=== PATIENT | male | born 1955 | race Caucasian/White ===

== ENCOUNTER 2016-12-07 16:54 | Inpatient (IN) | payer BC ==
[~2016-12-07] VITALS: Ht 188 cm; Wt 156.9 kg
[2016-12-07] MEDS ORDERED: ASPIRIN 325 MG TABLET PO ONE (17:15)
[2016-12-07] MEDS ORDERED: fentaNYL PF VIAL 100 MCG/2 ML VIAL IV PRN ×2 (17:15→18:45)
[2016-12-07 17:28] LABS: BASO % 1 % (0-3); EOS % 1 % (0-3); HEMATOCRIT 42.1 % (39.0-53.0); HEMOGLOBIN 14.3 g/dL (13.0-17.5); LYMPH % 23 % (24-48); MEAN CORPUSCULAR HEMOGLOBIN 29 pg (25-35); MEAN CORPUSCULAR HGB CONC 34 g/dL (31-37); MEAN CORPUSCULAR VOLUME 85 fL (79-100); MONO % 12 % (0-9); NEUT % 64 % (31-73); PLATELET COUNT 173 x10^3/uL (140-400); RED BLOOD COUNT 4.94 x10^6/uL (4.30-5.70); RED CELL DISTRIBUTION WIDTH 14.6 % (11.5-14.5); WHITE BLOOD COUNT 8.6 x10^3/uL (4.0-11.0)
[2016-12-07 17:46] LABS: CALCIUM 9.6 mg/dL (8.5-10.1); CREATININE 0.8 mg/dL (0.7-1.3); MAGNESIUM 2.1 mg/dL (1.8-2.4); POTASSIUM 3.9 mmol/L (3.5-5.1)
--- NOTE | 2016-12-07 18:36 | PHYS DOC ---
Past Medical History Past Medical History: Hypertension Past Surgical History: Appendectomy Additional Past Surgical Histo: VEIN SURGERY ON LEGS Alcohol Use: None Drug Use: None Adult General Chief Complaint Chief Complaint: CHEST PAIN HPI HPI Patient is a 61 year old male who presents with with left upper achy/stabbing chest pain that started approximately 1 hour prior to arrival, constant, nonradiating, associated with right hand tingling. Started shortly after a large family argument about the care of his mother with Alzheimer's. He now has minimal symptoms and is feeling mostly better. He denies cough, dyspnea, palpitations, lightheadedness, diaphoresis, orthopnea, leg pain or swelling, hemoptysis, nausea or vomiting, fever or chills, exertional symptoms. 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 Review of Systems Review of Systems Constitutional: Denies fever or chills [] Eyes: Denies change in visual acuity, redness, or eye pain [] HENT: Denies nasal congestion or sore throat [] Respiratory: Denies cough or shortness of breath [] Cardiovascular: No additional information not addressed in HPI [] GI: Denies abdominal pain, nausea, vomiting, bloody stools or diarrhea [] : Denies dysuria or hematuria [] Musculoskeletal: Denies back pain or joint pain [] Integument: Denies rash or skin lesions [] Neurologic: Denies headache, focal weakness or sensory changes [] Endocrine: Denies polyuria or polydipsia [] Current Medications Current Medications Current Medications Medications (Trade) Dose Ordered Sig/[facility] Start Time Stop Time Status Last Admin Dose Admin Aspirin (Alec Aspirin) 325 mg 1X ONCE 12/07/16 17:15 12/07/16 17:24 DC 12/07/16 17:37 325 MG Fentanyl Citrate (Fentanyl 2ml Vial) 50 mcg PRN Q15MIN PRN 12/07/16 17:15 12/08/16 17:14 Allergies Allergies Allergies Coded Allergies Type Severity Reaction Last Updated Verified No Known Drug Allergies 12/07/16 No Physical Exam Physical Exam Constitutional: Well developed, well nourished, no acute distress, non-toxic appearance. [] HENT: Normocephalic, atraumatic, bilateral external ears normal, oropharynx moist, nose normal. [] Eyes: PERRLA, EOMI. [] Neck: Normal range of motion, supple. [] Cardiovascular:Heart rate regular rhythm [] Lungs & Thorax: Bilateral breath sounds clear to auscultation. No chest wall tenderness [] Abdomen: Bowel sounds normal, soft, no tenderness. [] Skin: Warm, dry, no erythema, no rash. [] Back: Normal range of motion. [] Extremities: No tenderness, ROM intact, no edema. [] Neurologic: Alert and oriented X 3, normal motor function, normal sensory function, no focal deficits noted. [] Psychologic: Affect normal, judgement normal, mood normal. [] Current Patient Data Vital Signs Vital Signs Date Time Temp Pulse Resp B/P (MAP) Pulse Ox O2 Delivery O2 Flow Rate FiO2 12/07/16 17:06 98.7 109 20 194/91 (125) 98 Room Air 98.7 Lab Values Laboratory Tests Test 12/07/16 17:17 White Blood Count 8.6 x10^3/uL (4.0-11.0) Red Blood Count 4.94 x10^6/uL (4.30-5.70) Hemoglobin 14.3 g/dL (13.0-17.5) Hematocrit 42.1 % (39.0-53.0) Mean Corpuscular Volume 85 fL (79-100) Mean Corpuscular Hemoglobin 29 pg (25-35) Mean Corpuscular Hemoglobin Concent 34 g/dL (31-37) Red Cell Distribution Width 14.6 % (11.5-14.5) H Platelet Count 173 x10^3/uL (140-400) Neutrophils (%) (Auto) 64 % (31-73) Lymphocytes (%) (Auto) 23 % (24-48) L Monocytes (%) (Auto) 12 % (0-9) H Eosinophils (%) (Auto) 1 % (0-3) Basophils (%) (Auto) 1 % (0-3) Neutrophils # (Auto) 5.5 x10^3uL (1.8-7.7) Lymphocytes # (Auto) 2.0 x10^3/uL (1.0-4.8) Monocytes # (Auto) 1.0 x10^3/uL (0.0-1.1) Eosinophils # (Auto) 0.1 x10^3/uL (0.0-0.7) Basophils # (Auto) 0.0 x10^3/uL (0.0-0.2) Sodium Level 140 mmol/L (136-145) Potassium Level 3.9 mmol/L (3.5-5.1) Chloride Level 102 mmol/L (98-107) Carbon Dioxide Level 26 mmol/L (21-32) Anion Gap 12 (6-14) Blood Urea Nitrogen 18 mg/dL (8-26) Creatinine 0.8 mg/dL (0.7-1.3) Estimated GFR (Cockcroft-Gault) 98.0 Glucose Level 129 mg/dL (70-99) H Calcium Level 9.6 mg/dL (8.5-10.1) Magnesium Level 2.1 mg/dL (1.8-2.4) Troponin I Quantitative < 0.017 ng/mL (0.000-0.055) RY-Scz-F-Type Natriuretic Peptide 80 pg/mL (0-124) Laboratory Tests 12/07/16 17:17 Laboratory Tests 12/07/16 17:17 EKG EKG EKG as interpreted by me as sinus tachycardia, rate 1:15, no ST-T changes, normal intervals, no ectopy Radiology/Procedures Radiology/Procedures Chest xray as interpreted by me with no acute cardiopulmonary disease process Course & Med Decision Making Course & Med Decision Making Pertinent Labs and Imaging studies reviewed. (See chart for details) HEART score 4. Initial workup unremarkable. Will admit for ACS rule out. Discussed case with Dr. Domingo, who will admit. Cardiology consult placed. Tye Disclaimer Dragon Disclaimer This electronic medical record was generated, in whole or in part, using a voice recognition dictation system. Departure Departure Impression: Primary Impression: Chest pain Disposition: ADMITTED INPATIENT Condition: STABLE Referrals: LANDON DOMINGO MD (PCP) Problem Qualifiers Primary Impression: Chest pain Chest pain type: unspecified Qualified Codes: R07.9 - Chest pain, unspecified Andrey TORRE MD December 07, 2016 18:36
[2016-12-07] MEDS ORDERED: NITROGLYCERIN SUBLINGUAL 0.4 MG BOTTLE OF 25. SL PRN (18:45)
[2016-12-07] MEDS ORDERED: ONDANSETRON PF 4 MG/2 ML VIAL. IV PRN (18:45)
[2016-12-07] MEDS ORDERED: ACETAMINOPHEN 325 MG TABLET. PO PRN (18:45)
[2016-12-07 19:41] VITALS: BP 192/101
[2016-12-07] MEDS: cloNIDine HCL 0.1 MG TABLET PO PRN (21:39)
[2016-12-07] MEDS ORDERED: AMLO1TAB95 PO (22:44)
[2016-12-07 22:53] VITALS: BP 148/85
--- NOTE | 2016-12-08 01:47 | ACF ---
Admit Criteria Forms Admit Criteria Forms Admit Criteria Forms CHEST PAIN Clinical Indications for Admission to Inpatient Care (Place 'X' for any and all applicable criteria): Admission is indicated for chest pain and ANY ONE of the following(1)(2)(3)(4)(5 ): [X]I. Angina with acute coronary syndrome (Also use Myocardial Infarction or Angina guideline) [ ]II. Hemodynamic instability [ ]III. Angina needing acute intervention as indicated by ALL of the following( 11)(12): [ ]a) Unstable angina is present as indicated by angina that is ANY ONE of the following: [ ]i) New onset [ ]ii) Nocturnal [ ]iii) Prolonged at rest [ ]iv) Progressive [ ]b) Angina warrants acute intervention as indicated by ANY ONE of the following: [ ]i) Recurrent angina (e.g, not responding as previously to treatment) [ ]ii) Angina at rest or with low-level activities despite initial medical therapy [ ]iii) New or presumably new ST-segment depression on ECG [ ]iv) Signs or symptoms of heart failure (eg, dyspnea, pulmonary edema) [ ]v) New or worsening mitral regurgitation [ ]vi) Hemodynamic instability [ ]vii) Dangerous arrhythmia (eg, sustained ventricular tachycardia) [ ]viii) History of percutaneous coronary intervention within 6 months [ ]ix) History of coronary artery bypass graft surgery [ ]x) CELINE risk score of 2 or greater[A] [ ]xi) History of Diabetes(14) [ ]xii) High-risk cardiac ischemia findings on noninvasive testing (e.g, echocardiogram, treadmill testing, nuclear scan) [ ]xiii) Chronic renal insufficiency (ie, estimated GFR less than 60 mL/min/1.732m) [ ]xiv) Left ventricular ejection fraction less than 40% [ ]IV. Evidence of OK (eg, cardiac biomarkers positive, ST-segment elevation on ECG) also use Myocardial Infarction Criteria Form. [ ]V. Pulmonary edema [ ]. Respiratory distress [ ]VII. Chest pain indicative of serious diagnosis other than coronary artery disease (eg, aortic dissection) [ ]VIII. Contraindications and/or Inappropriate clinical situations for Observational Care in patients with Chest Pain, when ANY ONE of the following is required: [ ]a) Patient with risk factor for pulmonary embolism, acute coronary syndrome and myocardial infarction (18) [ ]b) Patient with Pulmonary embolism require an average LOS of 4.3 days, therefore emergency department observation management is inappropriate 18,23 [ ]c) Painful condition/s in the elderly, have the highest rate of recidivism after emergency department observation management (10.8%) 20,21,22 [ ]d) Elevated cardiac biomarker requires intensive and exhaustive care (19) [ ]IX. General contraindications and/or Inappropriate clinical situations for Observational Care in patients with Chest Pain, when ANY ONE of the following is required: [ ]a) Prediction of prolongation of LOS based on ANY ONE of the following may be considered as a contraindication for observational care 2, 3, 4, 5, 6, 7, 8, 9, 10, 11 [ ]i) Age > 65 yrs. [ ]ii) Patient arriving by ambulance [ ]iii) Patient with high acuity [ ]iv) Patient requiring vital sign monitoring [ ]v) Patient on IV medication [ ]b) Systolic blood pressures 180mmHg 3,12 [ ]c) Patient with altered mental status including delirium and other alteration of consciousness, (3) [ ]d) Patient whose discharge disposition will be to a fdc home or rehabilitation home should not be managed in Emergency Department Observation Unit. CMS rule requires 3 days hospital stay before such placement. 3,13 [ ]e) Patient with failure to thrive due to broad array of etiologies 3,16,17 [ ]f) Inability to ambulate 3,14 Extended stay beyond goal length of stay may be needed for (1)(28): [ ]a) Specific condition diagnosed after evaluation (eg, pulmonary embolism, aortic dissection) [ ]b) Unstable angina [ ]c) Continued suspicion of acute coronary syndrome with inability to complete needed cardiac evaluation (eg, patient clinically unable to undergo stress testing) [ ]d) Myocardial infarction (Contents from ANGINA and CHEST PAIN clinical indications for admission to inpatient care have been integrated in this form) The original [employer] content created by [employer] has been revised. The portions of the content which have been revised are identified through the use of italic text or in bold, and [facility] has neither reviewed nor approved the modified material. All other unmodified content is copyright [employer]. Please see references footnoted in the original [facility] edition 2016 CAIN MAYA December 08, 2016 01:47
[2016-12-08 03:53] VITALS: BP 124/80
--- NOTE | 2016-12-08 06:28 | EKG ---
[facility] [address] [place] [address] Test Date: 2016-12-07 Test Time: 17:02:27 Pat Name: SHANTANU ABEBE Department: Room: 200 1 Gender: M Dispatch Clerk: : [id number] Requested By: Andrey TORRE Order Number: [id number] Reading MD: Robe Tello Measurements Intervals [place] Rate: 115 P: 38 TX: 136 QRS: -21 QRSD: 114 T: 24 QT: 340 QTc: 472 Interpretive Statements SINUS TACHYCARDIA RBBB Electronically Signed On 12-09-2016 9:20:54 CDT by Robe Tello
[2016-12-08 07:00] VITALS: BP 145/77
--- NOTE | 2016-12-08 09:05 | PDOC2 ---
CARDIAC CONSULT DATE OF CONSULT Date of Consult DATE: 12/08/16 TIME: 08:57 REASON FOR CONSULT Reason for Consult: Chest pain REFERRING PHYSICIAN Referring Physician: White SOURCE Source: Chart review, Patient HISTORY OF PRESENT ILLNESS HISTORY OF PRESENT ILLNESS This is a pleasant 61 yo male admitted for complains of chest pain. Reports that he was having family dynamics issue in regards to care for his mother who likely has advanced Alzheimers. This lasted for a while with mother calling the police. He made the report with the police. He head to the car afterwards then he started feeling significant left sharp pain and felt that this was anxiety related which he was. Upon driving this continued on and started having right hand numbness and tingling. Denies any diaphoresis, palpitations, nausea or SOA. This discomfort lasted about 40 minutes before getting better. He does not take any ASA. However, he takes BP meds and when he got to ED his BP remained elevated despite taking his medications. He also has preDM. Denies any recent falls, or injury, neck problems. Last stress test was >10 yrs ago. Denies any CAD, VTE. No chronic NSAIDs and no history of anxiety or depression. PAST MEDICAL HISTORY Cardiovascular: Other (varicose veins) Pulmonary: No pertinent hx CENTRAL NERVOUS SYSTEM: Other (No pertinent history) GI: No pertinent hx Heme/Onc: No pertinent hx Hepatobiliary: No pertinent hx Psych: No pertinent hx Musculoskeletal: Osteoarthritis Rheumatologic: No pertinent hx Infectious disease: No pertinent hx ENT: No pertinent hx Renal/: No pertinent hx Endocrine: No pertinent hx PAST SURGICAL HISTORY Past Surgical History: Appendectomy, Other (leg vein stripping) SOCIAL HISTORY Smoke: No ALCOHOL: none Drugs: None Lives: with Family CURRENT MEDICATIONS CURRENT MEDICATIONS Current Medications Medications (Trade) Dose Ordered Sig/Lucio Route PRN Reason Start Time Stop Time Status Last Admin Dose Admin Aspirin (Alec Aspirin) 325 mg 1X ONCE PO 12/07/16 17:15 12/07/16 17:24 DC 12/07/16 17:37 Clonidine HCl (Catapres) 0.1 mg PRN Q6HRS PRN PO HYPERTENSION for Systolic >160 12/07/16 21:30 12/07/16 21:39 ALLERGIES ALLERGIES: Coded Allergies: No Known Drug Allergies (Unverified , 12/07/16) ROS Review of System 14 point ROS evaluated with pertinent positives noted per HPI PHYSICAL EXAM General: Alert, Oriented X3, Cooperative, No acute distress HEENT: Atraumatic, Mucous membr. moist/pink Heart: Regular rate (SR), Normal S1, Normal S2, Other (2/6 systolic murmur to LLS border) Abdomen: Soft, Other (truncal obese) Extremities: No cyanosis, No edema Skin: No significant lesion Neuro: Normal speech, Sensation intact Psych/Mental Status: Mental status NL, Mood NL MUSCULOSKELETAL: Osteoarthritic changes both hands VITALS VITALS Vital Signs Date Time Temp Pulse Resp B/P (MAP) Pulse Ox O2 Delivery O2 Flow Rate FiO2 12/08/16 08:00 Room Air 12/08/16 07:00 97.7 68 20 145/77 (99) 95 97.7 LABS Lab: Laboratory Tests Test 12/07/16 17:17 12/08/16 00:15 12/08/16 05:45 White Blood Count 8.6 x10^3/uL (4.0-11.0) Red Blood Count 4.94 x10^6/uL (4.30-5.70) Hemoglobin 14.3 g/dL (13.0-17.5) Hematocrit 42.1 % (39.0-53.0) Mean Corpuscular Volume 85 fL (79-100) Mean Corpuscular Hemoglobin 29 pg (25-35) Mean Corpuscular Hemoglobin Concent 34 g/dL (31-37) Red Cell Distribution Width 14.6 % (11.5-14.5) Platelet Count 173 x10^3/uL (140-400) Neutrophils (%) (Auto) 64 % (31-73) Lymphocytes (%) (Auto) 23 % (24-48) Monocytes (%) (Auto) 12 % (0-9) Eosinophils (%) (Auto) 1 % (0-3) Basophils (%) (Auto) 1 % (0-3) Neutrophils # (Auto) 5.5 x10^3uL (1.8-7.7) Lymphocytes # (Auto) 2.0 x10^3/uL (1.0-4.8) Monocytes # (Auto) 1.0 x10^3/uL (0.0-1.1) Eosinophils # (Auto) 0.1 x10^3/uL (0.0-0.7) Basophils # (Auto) 0.0 x10^3/uL (0.0-0.2) Sodium Level 140 mmol/L (136-145) Potassium Level 3.9 mmol/L (3.5-5.1) Chloride Level 102 mmol/L (98-107) Carbon Dioxide Level 26 mmol/L (21-32) Anion Gap 12 (6-14) Blood Urea Nitrogen 18 mg/dL (8-26) Creatinine 0.8 mg/dL (0.7-1.3) Estimated GFR (Cockcroft-Gault) 98.0 Glucose Level 129 mg/dL (70-99) Calcium Level 9.6 mg/dL (8.5-10.1) Magnesium Level 2.1 mg/dL (1.8-2.4) Troponin I Quantitative < 0.017 ng/mL (0.000-0.055) < 0.017 ng/mL (0.000-0.055) < 0.017 ng/mL (0.000-0.055) TB-Avu-K-Type Natriuretic Peptide 80 pg/mL (0-124) ASSESSMENT/PLAN ASSESSMENT/PLAN 1. Atypical chest pain: Likely anxiety induced. troponin series normal, EKG SR with LAFB/IVCD. Noted cardiac risk factors. 2. Accelerated HTN: improved 3. Morbid obesity: BMI 45 4. Dysmetabolic X syndrome Recommendations 1. Would like to go ahead an proceed with MPI and will completely rule out ischemia 2. TTE, CMP, TSH, lipids 3. Lifestyle modifications 4. Resume home amlodipine/benicar Problems: ALEXANDRO ANN APRN December 08, 2016 09:05
--- NOTE | 2016-12-08 09:19 | RAD ---
Indication hypertension. Chest pain. PA and lateral views of the chest were obtained. No prior imaging of the chest is available. The heart and pulmonary vessels appear normal. The lungs are clear. There is no pleural fluid or pneumothorax. The bony structures appear grossly intact. IMPRESSION: No acute or focal process is seen in the chest
[2016-12-08 09:50] LABS: ALBUMIN 3.6 g/dL (3.4-5.0); ALBUMIN/GLOBULIN RATIO 1.1 (1.0-1.7); CALCIUM 8.9 mg/dL (8.5-10.1); CREATININE 0.9 mg/dL (0.7-1.3); GFR 85.5; POTASSIUM 3.6 mmol/L (3.5-5.1); TOTAL BILIRUBIN 0.4 mg/dL (0.2-1.0)
[2016-12-08 09:51] LABS: CHOLESTEROL/HDL RATIO 3.2
[2016-12-08 11:06] VITALS: BP 193/98
[2016-12-08] MEDS: cloNIDine HCL 0.1 MG TABLET PO PRN (11:12)
[2016-12-08] MEDS ORDERED: LABETALOL 20 MG/4 ML DISP.SYRIN. IVP PRN (11:15)
[2016-12-08] MEDS ORDERED: LABETALOL 20 MG/4 ML DISP.SYRIN. IVP ONE (11:30)
[2016-12-08] MEDS: amLODIPine BESYLATE 5 MG TABLET PO SCH (12:09)
[2016-12-08] MEDS: LOSARTAN POTASSIUM 50 MG TABLET. PO SCH (12:10)
--- NOTE | 2016-12-08 16:16 | CARD ---
APPROVED REPORT EXAM: Two-dimensional and M-mode echocardiogram with Doppler and color Doppler. Other Information Quality : GoodHR: 88bpm Rhythm : NSR INDICATION Chest pain RISK FACTORS Obesity 2D DIMENSIONS RVDd3.1 (2.9-3.5cm)Left Atrium(2D)3.8 (1.6-4.0cm) IVSd1.3 (0.7-1.1cm)Aortic Root(2D)3.4 (2.0-3.7cm) LVDd5.0 (3.9-5.9cm)LVOT Diameter2.3 (1.8-2.4cm) PWd1.3 (0.7-1.1cm)LVDs3.5 (2.5-4.0cm) FS (%) 30.4 %SV69.6 ml LVEF(%)57.5 (>50%) Aortic Valve AoV Peak Sree.166.4cm/sAoV VTI30.1cm AO Peak GR.11.1mmHgLVOT Peak Sree.123.1cm/s AO Mean GR.6mmHgAVA (VMAX)3.04cm2 Mitral Valve MV E Fjhtkcxd91.8cm/sMV E Peak Gr.5mmHg MV DECEL [id number] A Lhghgdub298.7cm/s MV E Mean Gr.2mmHgE/A Ratio0.7 MV A [id number] Pulmonary Valve PV Peak Nognuvnb269.2cm/s Pulmonary Vein S1 Zjyiblpj37.7cm/sD2 Nrxtptmk64.3cm/s PVa [id number] LEFT VENTRICLE The left ventricle is normal size. There is mild concentric left ventricular hypertrophy. The left ve ntricular systolic function is normal and the ejection fraction is within normal range. The Ejection Fraction is 55-60%. There is normal LV segmental wall motion. Transmitral Doppler flow pattern is Gra de I-abnormal relaxation pattern. RIGHT VENTRICLE The right ventricle is normal size. There is normal right ventricular wall thickness. The right ventr icular systolic function is normal. ATRIA The left atrium size is normal. The right atrium size is normal. The interatrial septum is intact wit h no evidence for an atrial septal defect or patent foramen ovale as noted on 2-D or Doppler imaging. AORTIC VALVE The aortic valve is mildly The aortic valve is trileaflet. Doppler and Color Flow revealed no signifi cant aortic regurgitation. There is no significant aortic valvular stenosis. MITRAL VALVE Mitral annular calcification is mild. The mitral valve leaflets are thickened. There is no evidence o f mitral valve prolapse. There is no mitral valve stenosis. Doppler and Color Flow revealed trace ewa ral valve regurgitation. TRICUSPID VALVE Doppler and Color Flow revealed trace tricuspid valve regurgitation. PULMONIC VALVE Doppler and Color Flow revealed mild pulmonic valvular regurgitation. There is no pulmonic valvular s tenosis. GREAT VESSELS The aortic root is normal in size. The ascending aorta is normal in size. The pulmonary artery is nor mal. The IVC is obscured, unable to assess. PERICARDIAL EFFUSION There is no evidence of significant pericardial effusion. Critical Notification Critical Value: No <Conclusion> The left ventricle is normal size. The left ventricular systolic function is normal and the ejection fraction is within normal range. The Ejection Fraction is 55-60%. There is mild concentric left ventricular hypertrophy. There is no significant aortic valvular stenosis. Doppler and Color Flow revealed no significant aortic regurgitation. Doppler and Color Flow revealed trace mitral valve regurgitation. Doppler and Color Flow revealed trace tricuspid valve regurgitation. There is no evidence of significant pericardial effusion.
--- NOTE | 2016-12-08 17:03 | PDOC ---
GENERAL General: vss and afebrile. awake and alert. no further chest pain. troponin negative X 3. chest clear and heart regular. blood pressures are high and likely partly related to substitution of blood pressure meds in hospital. continue prn clonidine. cardiology help appreciated and stress test in am. Problems: VITAL SIGNS Vital Signs: Vital Signs Date Time Temp Pulse Resp B/P (MAP) Pulse Ox O2 Delivery O2 Flow Rate FiO2 12/08/16 12:10 82 193/98 12/08/16 11:06 97.6 22 94 Room Air 97.6 I & O I & O Intake and Output 12/08/16 07:00 Intake Total 1400 ml Output Total 2100 ml Balance -700 ml Intake Oral 1400 ml Output Urine Total 2100 ml # Voids 1 ALLERGIES Allergies: Allergies Coded Allergies Type Severity Reaction Last Updated Verified No Known Drug Allergies 12/07/16 No MEDS Medications: Current Medications Medications (Trade) Dose Ordered Sig/Lucio Start Time Stop Time Status Last Admin Dose Admin Acetaminophen (Tylenol) 650 mg PRN Q4HRS PRN 12/07/16 18:45 12/08/16 18:44 Amlodipine Besylate (Norvasc) 5 mg DAILY 12/08/16 11:30 12/08/16 12:09 5 MG Aspirin (Alec Aspirin) 325 mg 1X ONCE 12/07/16 17:15 12/07/16 17:24 DC 12/07/16 17:37 325 MG Clonidine HCl (Catapres) 0.1 mg PRN Q6HRS PRN 12/07/16 21:30 12/08/16 15:31 DC 12/08/16 11:12 0.1 MG Fentanyl Citrate (Fentanyl 2ml Vial) 50 mcg PRN Q2HR PRN 12/07/16 18:45 12/08/16 18:44 Labetalol HCl (Normodyne) 20 mg 1X ONCE 12/08/16 11:30 12/08/16 11:31 DC Losartan Potassium (Cozaar) 100 mg DAILY 12/08/16 11:30 12/08/16 12:10 100 MG Nitroglycerin (Nitrostat) 0.4 mg PRN Q5MIN PRN 12/07/16 18:45 12/08/16 18:44 Non-Formulary Medication daily DAILY 12/09/16 09:00 UNV Ondansetron HCl (Zofran) 4 mg PRN Q8HRS PRN 12/07/16 18:45 12/08/16 18:44 LAB Lab: Laboratory Tests Test 12/07/16 17:17 12/08/16 00:15 12/08/16 05:45 White Blood Count 8.6 x10^3/uL (4.0-11.0) Red Blood Count 4.94 x10^6/uL (4.30-5.70) Hemoglobin 14.3 g/dL (13.0-17.5) Hematocrit 42.1 % (39.0-53.0) Mean Corpuscular Volume 85 fL (79-100) Mean Corpuscular Hemoglobin 29 pg (25-35) Mean Corpuscular Hemoglobin Concent 34 g/dL (31-37) Red Cell Distribution Width 14.6 % (11.5-14.5) Platelet Count 173 x10^3/uL (140-400) Neutrophils (%) (Auto) 64 % (31-73) Lymphocytes (%) (Auto) 23 % (24-48) Monocytes (%) (Auto) 12 % (0-9) Eosinophils (%) (Auto) 1 % (0-3) Basophils (%) (Auto) 1 % (0-3) Neutrophils # (Auto) 5.5 x10^3uL (1.8-7.7) Lymphocytes # (Auto) 2.0 x10^3/uL (1.0-4.8) Monocytes # (Auto) 1.0 x10^3/uL (0.0-1.1) Eosinophils # (Auto) 0.1 x10^3/uL (0.0-0.7) Basophils # (Auto) 0.0 x10^3/uL (0.0-0.2) Sodium Level 140 mmol/L (136-145) 141 mmol/L (136-145) Potassium Level 3.9 mmol/L (3.5-5.1) 3.6 mmol/L (3.5-5.1) Chloride Level 102 mmol/L (98-107) 104 mmol/L (98-107) Carbon Dioxide Level 26 mmol/L (21-32) 27 mmol/L (21-32) Anion Gap 12 (6-14) 10 (6-14) Blood Urea Nitrogen 18 mg/dL (8-26) 17 mg/dL (8-26) Creatinine 0.8 mg/dL (0.7-1.3) 0.9 mg/dL (0.7-1.3) Estimated GFR (Cockcroft-Gault) 98.0 85.5 Glucose Level 129 mg/dL (70-99) 124 mg/dL (70-99) Calcium Level 9.6 mg/dL (8.5-10.1) 8.9 mg/dL (8.5-10.1) Magnesium Level 2.1 mg/dL (1.8-2.4) Troponin I Quantitative < 0.017 ng/mL (0.000-0.055) < 0.017 ng/mL (0.000-0.055) < 0.017 ng/mL (0.000-0.055) ZV-Wgs-V-Type Natriuretic Peptide 80 pg/mL (0-124) BUN/Creatinine Ratio 19 (6-20) Total Bilirubin 0.4 mg/dL (0.2-1.0) Aspartate Amino Transf (AST/SGOT) 28 U/L (15-37) Alanine Aminotransferase (ALT/SGPT) 58 U/L (16-63) Alkaline Phosphatase 42 U/L (46-116) Total Protein 7.0 g/dL (6.4-8.2) Albumin 3.6 g/dL (3.4-5.0) Albumin/Globulin Ratio 1.1 (1.0-1.7) Triglycerides Level 143 mg/dL (0-150) Cholesterol Level 146 mg/dL (0-200) LDL Cholesterol, Calculated 71 mg/dL (0-100) VLDL Cholesterol, Calculated 29 mg/dL (0-40) Non-HDL Cholesterol Calculated 100 mg/dL (0-129) HDL Cholesterol 46 mg/dL (40-60) Cholesterol/HDL Ratio 3.2 Thyroid Stimulating Hormone (TSH) 5.422 uIU/mL (0.358-3.74) LANDON DOMINGO MD December 08, 2016 17:03
[2016-12-08 19:00] VITALS: BP 148/70
[2016-12-08 23:39] VITALS: BP 132/72
[2016-12-09 02:51] VITALS: BP 138/86
[2016-12-09 07:42] VITALS: BP 150/79
[2016-12-09] MEDS ORDERED: REGADENOSON 0.4 MG/5 ML DISP.SYRIN. IV ONE (08:30)
[2016-12-09] MEDS ORDERED: AMLODIPINE BES PO SCH (09:00)
[2016-12-09] MEDS ORDERED: OLMESARTAN MED PO SCH (09:00)
[2016-12-09] MEDS: LOSARTAN POTASSIUM 50 MG TABLET. PO SCH (10:08)
[2016-12-09] MEDS: amLODIPine BESYLATE 5 MG TABLET PO SCH (10:09)
[2016-12-09 10:22] VITALS: BP 149/80
--- NOTE | 2016-12-09 11:39 | PDOC ---
CARDIO Progress Notes Date and Time Date of Service 12/09/16 Time of Evaluation 1115 Subjective Subjective: No Chest Pain, No shortness of breath, No Palpitations Vitals Vitals Vital Signs Date Time Temp Pulse Resp B/P (MAP) Pulse Ox O2 Delivery O2 Flow Rate FiO2 12/09/16 10:22 98.0 81 20 149/80 (103) 95 Room Air 98.0 Weight Weight [ ] Input and Output Intake and Output Intake and Output 12/09/16 07:00 Intake Total 5280 ml Output Total 2400 ml Balance 2880 ml Intake Oral 5280 ml Output Urine Total 2400 ml # Voids 1 Physical Exam HEENT: Neck Supple W Full Motion Chest: Symmetric LUNGS: Clear to Auscultation Heart: S1S2, RRR, murmurs Abdomen: Soft N/T, Other (obese ) Extremities: 2+ Dorsalis Pedis, No Calf Tenderness, Other (trace bilateral LE edema ) Neurology: alert, oriented, follow commands Assessment Assessment 1. Atypical chest pain AMI ruled out. Echo with preserved LV function with an EF of 55-60% 2-day protocol MPI underway; 2nd portion today. If no evidence of ischemia, may discharge from a CV standpoint and followup as needed 2. Accelerated HTN controlled. continue with current therapy 3. Morbid obesity: BMI 45 encouraged diet and lifestyle modification 4. Hypothyroidism new finding management per PCP TU LINDER APRN Dec 09, 2016 11:39
--- NOTE | 2016-12-09 13:01 | RAD ---
APPROVED REPORT Test Type: Pharmacological Stress Nurse/Tech: Augustina Meredith R.N. Test Indications: chest pain Cardiac History: Family history, Hypertension Medications: See Electronic Medical Record Medical History: See Electronic Medical Record Resting ECG: NSR, RBBB Resting Heart Rate: 77 bpm Resting Blood Pressure: 148/81mmHg Pretest Chest Pain: No chest pain Nurse/Tech Notes S1S2, lungs sound clear Consent: The procedure was explained to the patient in lay terms. Informed consent was witnessed. Oj eout was entered into ODEC. History and Stress Test performed by Augustina Meredith R.N. Pharm. Details Pharmacologic stress testing was performed using 0.4mg per 5ml of regadenoson given intravenously ove r 7-10 seconds. Stress Symptoms Dyspnea POST EXERCISE Reason for Termination: Infusion complete Max HR: 98 bpm Max Blood Pressure: 163/77mmHg Blood Pressure response to exercise: Normal blood pressure response during stress. Chest Pain: No. Arrhythmia: No. ST Change: No. INTERPRETATION Stress EKG Conclusion: No evidence of stress induced EKG changes. Imaging Protocol IMAGE PROTOCOL: Rest Tc-99m/stress Tc-99m 2 days Rest: Stress: Viability: Radiopharm.Tc99m [id number] Sestamibi Deuc91hPd 32mCi Img Date 12/08/2016 12/09/2016 Inj-Img [id number]. 180min. Rest Admin Site:IV - Right HandAdministrator:Luis Blank RT (R)(N) Stress Admin Site: IV - Right HandAdministrator: Adali Shaffer RT (R)(N) STRESS DATA End Diast. Vol.161.0mlAv. Heart Rate79.0bpm End Syst. Vol.61.0mlCO Index BSA0.0L/min Myocardial Jtol954.0gEject. Iiwzeqrt62.0% Stress Rates Pk. Fill Rate2.88EDV/secLVtime Pk. Fill 213.80msec Pk. Empty Rate3.10ESV/secLVtime Pk. Mnunt468.29msec 07/13 Pk. Fill0.96EDV/sec Stress Scores Regional WT0.00Summed WT2.00 Regional WM0.00Summed WM3.00 LV Perfusion There is a small sized, moderate in intensity, apical perfusion defect that is fully reversible sugge stive of perfusion impairment. Wall Motion Normal wall motion. LV Perfusion 1 TCD/TID: Yes LV Perf. Quant 17 Seg. SSS1.00 17 Seg. SRS0.00 17 Seg. SDS1.00 Stress Defect Extent (% LAD)0.00Rest Defect Extent (% LAD)0.00Rev. Defect Extent (% LAD)0.00 Stress Defect Extent (% LCX) 5.00Rest Defect Extent (% LCX)0.00Rev. Defect Extent (% LCX)3.80 Stress Defect Extent (% RCA)0.00Rest Defect Extent (% RCA)0.00Rev. Defect Extent (% RCA)0.00 Stress Defect Extent (% TREVOR)2.60Rest Defect Extent (% TREVOR)0.00Rev. Defect Extent (% TREVOR)2.20 Other Information Quality:Average Risk Assessment: Moderate-High Risk Conclusion 1. No evidence of vasodilator induced EKG changes. 2. Small reversible apical perfusion defect suggestive of impaired perfusion reserve in the distal LA D 3. There is transient ischemia dilation, suggestive of balanced ischemia. 4. Normal EF at 60% 5. High risk study Recommendations Coronary angiography if clinically indicated.
--- NOTE | 2016-12-09 13:53 | HP ---
ADMIT DATE: CHIEF COMPLAINT AND HISTORY OF PRESENT ILLNESS: This 61-year-old white male who is well known to me from followup in the office. The patient developed chest pain, which he describes as left upper with a stabbing character that started approximately an hour before arrival to the hospital. Ongoing at the same time was the fact that his mother, who lives with him and his , is demented ____ and called for help and the [facility] Lit[facility] Par[facility]egal's Department arrived to see what was going on, which there was nothing. He denies any associated symptoms with it. States he had a little bit of right hand tingling with it. His pain had mostly eased by the time of presentation to the ER; never had a cardiac workup, however, was kept to rule out cardiac syndrome. PAST MEDICAL HISTORY: Remarkable for hypertension. PAST SURGICAL HISTORY: Remarkable for varicose vein surgery on his legs as well as an appendectomy. MEDICATIONS: Brought with the patient, listed on the computer and have been addressed. ALLERGIES: He has no known drug allergies. SOCIAL HISTORY: He is a nonsmoker, nondrinker, does not use drugs. 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 FAMILY HISTORY: Noncontributory. REVIEW OF SYSTEMS: As mentioned above. PHYSICAL EXAMINATION: GENERAL: He is a well-developed, well-nourished white male in no acute distress. VITAL SIGNS: Remarkable for blood pressures being quite elevated since admission until the morning of the , where it was back to normal. His medicines however have been substituted with formulary changes and I suspect this could be part as he easily has a decent blood pressure in the office. He is afebrile. HEAD, EYES, EARS, NOSE AND THROAT: Unremarkable. NECK: Supple without bruit or thyromegaly. CHEST: Clear to auscultation and percussion. HEART: Regular rate and rhythm without S3, S4 or murmur. ABDOMEN: Soft, nontender, without hepatosplenomegaly or masses. EXTREMITIES: Without cyanosis, clubbing. He does have some venous stasis changes present. NEUROLOGIC: He is intact. IMPRESSION: Chest pain, likely noncardiac by story but precipitated by stress and at least for the fact that he is obese and has hypertension. PLAN: The patient has been admitted. Serial enzymes will be done. Cardiology will be asked to see him. The patient will be monitored, managed and treated appropriately. LANDON DOMINGO MD DR: Fan JOB#: [id number] / [id number]
[2016-12-09 14:46] VITALS: BP 135/89
[2016-12-09 19:31] VITALS: BP 154/84
--- NOTE | 2016-12-09 20:36 | PDOC ---
GENERAL General: vss and afebrile. blood pressure little high still. tsh with mild elevation and will need to recheck prior to treatment. stress test abnormal and will have heart cath tomorrow. chest clear and heart regular and no further chest pain. await cath results. Problems: VITAL SIGNS Vital Signs: Vital Signs Date Time Temp Pulse Resp B/P (MAP) Pulse Ox O2 Delivery O2 Flow Rate FiO2 12/09/16 19:31 98.9 92 18 154/84 (107) 95 Room Air 98.9 I & O I & O Intake and Output 12/09/16 07:00 Intake Total 5280 ml Output Total 2400 ml Balance 2880 ml Intake Oral 5280 ml Output Urine Total 2400 ml # Voids 1 ALLERGIES Allergies: Allergies Coded Allergies Type Severity Reaction Last Updated Verified No Known Drug Allergies 12/07/16 No MEDS Medications: Current Medications Medications (Trade) Dose Ordered Sig/Lucio Start Time Stop Time Status Last Admin Dose Admin Acetaminophen (Tylenol) 650 mg PRN Q4HRS PRN 12/07/16 18:45 12/08/16 18:44 DC Amlodipine Besylate (Norvasc) 5 mg DAILY 12/08/16 11:30 12/09/16 10:09 5 MG Aspirin (Alec Aspirin) 325 mg 1X ONCE 12/07/16 17:15 12/07/16 17:24 DC 12/07/16 17:37 325 MG Clonidine HCl (Catapres) 0.1 mg PRN Q6HRS PRN 12/07/16 21:30 12/08/16 15:31 DC 12/08/16 11:12 0.1 MG Fentanyl Citrate (Fentanyl 2ml Vial) 50 mcg PRN Q2HR PRN 12/07/16 18:45 12/08/16 18:44 DC Labetalol HCl (Normodyne) 20 mg 1X ONCE 12/08/16 11:30 12/08/16 11:31 DC Losartan Potassium (Cozaar) 100 mg DAILY 12/08/16 11:30 12/09/16 10:08 100 MG Nitroglycerin (Nitrostat) 0.4 mg PRN Q5MIN PRN 12/07/16 18:45 12/08/16 18:44 DC Non-Formulary Medication daily DAILY 12/09/16 09:00 UNV Ondansetron HCl (Zofran) 4 mg PRN Q8HRS PRN 12/07/16 18:45 12/08/16 18:44 DC Regadenoson (Lexiscan) 0.4 mg 1X ONCE 12/09/16 08:30 12/09/16 08:31 DC 12/09/16 09:06 0.4 MG LANDON DOMINGO MD Dec 09, 2016 20:36
[2016-12-09 23:59] VITALS: BP 145/79
[2016-12-10] VITALS (12 sets, daily range): BP systolic 133–178; BP diastolic 54–99
--- NOTE | 2016-12-10 08:13 | PDOC ---
GENERAL General: vss and afebrile. awake and alert. stress test and cath discussed in detail with patient. exam stable. will start low dose thyroid replacement as thinks he has been depressed. plans to follow cath. Problems: VITAL SIGNS Vital Signs: Vital Signs Date Time Temp Pulse Resp B/P (MAP) Pulse Ox O2 Delivery O2 Flow Rate FiO2 12/10/16 07:00 97.6 70 18 158/72 (100) 97 Room Air 97.6 I & O I & O Intake and Output 12/10/16 07:00 Intake Total 2050 ml Output Total 3625 ml Balance -1575 ml Intake Oral 2050 ml Output Urine Total 3625 ml # Voids 1 ALLERGIES Allergies: Allergies Coded Allergies Type Severity Reaction Last Updated Verified No Known Drug Allergies 12/07/16 No MEDS Medications: Current Medications Medications (Trade) Dose Ordered Sig/Lucio Start Time Stop Time Status Last Admin Dose Admin Acetaminophen (Tylenol) 650 mg PRN Q4HRS PRN 12/07/16 18:45 12/08/16 18:44 DC Amlodipine Besylate (Norvasc) 5 mg DAILY 12/08/16 11:30 12/09/16 10:09 5 MG Aspirin (Alec Aspirin) 325 mg 1X ONCE 12/07/16 17:15 12/07/16 17:24 DC 12/07/16 17:37 325 MG Clonidine HCl (Catapres) 0.1 mg PRN Q6HRS PRN 12/07/16 21:30 12/08/16 15:31 DC 12/08/16 11:12 0.1 MG Fentanyl Citrate (Fentanyl 2ml Vial) 50 mcg PRN Q2HR PRN 12/07/16 18:45 12/08/16 18:44 DC Labetalol HCl (Normodyne) 20 mg 1X ONCE 12/08/16 11:30 12/08/16 11:31 DC Losartan Potassium (Cozaar) 100 mg DAILY 12/08/16 11:30 12/09/16 10:08 100 MG Nitroglycerin (Nitrostat) 0.4 mg PRN Q5MIN PRN 12/07/16 18:45 12/08/16 18:44 DC Non-Formulary Medication daily DAILY 12/09/16 09:00 UNV Ondansetron HCl (Zofran) 4 mg PRN Q8HRS PRN 12/07/16 18:45 12/08/16 18:44 DC Regadenoson (Lexiscan) 0.4 mg 1X ONCE 12/09/16 08:30 12/09/16 08:31 DC 12/09/16 09:06 0.4 MG LANDON DOMINGO MD Dec 10, 2016 08:13
[2016-12-10] MEDS ORDERED: IOHEXOL 350 MG/ML 100 ML VIAL. ONE (08:30)
[2016-12-10] MEDS ORDERED: LIDOCAINE 2% 20 ML VIAL. ONE (08:30)
[2016-12-10] MEDS ORDERED: LEVOTHYROXINE 50 MCG TABLET PO SCH (09:00)
[2016-12-10] MEDS ORDERED: NITROGLYCERIN 200 MCG/2 ML SYRINGE FOR CATH/VASC LAB. ONE (09:53)
[2016-12-10] MEDS ORDERED: VERAPAMIL 5 MG/2 ML VIAL. ONE (09:53)
[2016-12-10] MEDS ORDERED: MIDAZOLAM HCL/PF 2 MG/2 ML VIAL. ONE (09:53)
[2016-12-10] MEDS ORDERED: fentaNYL PF VIAL 100 MCG/2 ML VIAL ONE (09:53)
[2016-12-10] MEDS ORDERED: HEPARIN for IV BOLUS 10,000 UNIT/10 ML VIAL. ONE (09:54)
--- NOTE | 2016-12-10 10:22 | PDOC ---
MODERATE SEDATION ASSESSMENT RISKS/ALTERNATIVES Risks/Alternatives Risks and alternatives of this type of sedation and procedure discussed with: RISK/ALTERNATIVES: Patient H & P ON CHART H & P H & P on chart and reviewed for co-morbid conditions and appropriate labs. H&P ON CHART: Yes STATUS PREG STATUS ASSESSED: N/A MEDS/ALLERGIES REVIEWED Meds/Allergies Reviewed Medications and Allergies including time and route of recently administered narcotics and sedatives. MEDS/ALLERGIES REVIEWED: Yes ASA RATING ASA RATING: II AIRWAY ASSESSMENT Airway Assessment Airway patency, oral function limitations, presence of caps, crowns, dentures, partials, and ability to extend neck assessed. AIRWAY ASSESSMENT: Yes MALLAMPATI SCORE MALLAMPATI SCORE: II PRE-SEDATION ASSESSMENT PRE-SEDATION ASSESSMENT: Yes CHERIE MARCUS MD Dec 10, 2016 10:22
[2016-12-10] MEDS ORDERED: IOHEXOL 350 MG/ML 100 ML VIAL. IART ONE (10:30)
[2016-12-10] MEDS ORDERED: fentaNYL PF VIAL 100 MCG/2 ML VIAL IV ONE (10:30)
[2016-12-10] MEDS ORDERED: LIDOCAINE 2% 20 ML VIAL. IJ ONE (10:30)
[2016-12-10] MEDS ORDERED: NITROGLYCERIN 200 MCG/2 ML SYRINGE FOR CATH/VASC LAB. IART ONE (10:30)
[2016-12-10] MEDS ORDERED: HEPARIN for IV BOLUS 10,000 UNIT/10 ML VIAL. IART ONE (10:30)
[2016-12-10] MEDS ORDERED: VERAPAMIL 5 MG/2 ML VIAL. IART ONE (10:30)
[2016-12-10] MEDS ORDERED: MIDAZOLAM HCL/PF 2 MG/2 ML VIAL. IV ONE (10:30)
--- NOTE | 2016-12-10 10:47 | CARD ---
APPROVED REPORT Procedure(s) performed: Left heart catheterization, selective coronary angiography and left ventricul ography via right transradial approach INDICATION The indication(s) include : Chest pain and positive stress test. PROCEDURE NARRATIVE After explaining the risks, benefits and alternative options, informed consent was obtained from franny ent. Patient was brought to the cardiac Wrapping Machine Operator and right wrist was prepped and draped in the usual fashion after confirming a positive modified Brian's test. Arterial access was obtained in the [facility] t radial artery and a 6 Australian sheath was inserted. 6 Australian Vern catheter was used to perform alhaji ective angiography of the left and right coronary arteries. The same catheter was used to perform lef t ventriculography. Patient tolerated the procedure well. Hemostasis was achieved using TR band. T here were no immediate complications. The following findings were noted. FINDINGS 1. Hemodynamics: Left ventricular end-diastolic pressure of 8 mmHg. No pullback gradient across the aortic valve. 2. Left ventriculography: Normal left ventricle systolic function with ejection fraction estimated at 60%. No significant mitral regurgitation seen. 3. Coronary angiography: a. The left main coronary artery arose from the left sinus of Valsalva, gave rise to the left anteri or descending and left circumflex arteries and did not show any significant stenosis. b. The left anterior descending artery did not show any significant stenosis. c. The left circumflex artery was a large and dominant vessel that did not show any significant sten osis. d. The right coronary artery was a small and nondominant vessel arising from the right sinus of Vals [place]lin that did not show any significant stenosis. Conclusion 1. No significant coronary artery disease 2. Normal left ventricle systolic function with ejection fraction estimated at 60%. Recommendations Cardiac Risk Reduction Program
[2016-12-10] MEDS: LOSARTAN POTASSIUM 50 MG TABLET. PO SCH (10:51)
[2016-12-10] MEDS: amLODIPine BESYLATE 5 MG TABLET PO SCH (10:52)
[2016-12-10] MEDS ORDERED: IV 1/2 NORMAL SALINE 1,000 ML IV SCH (11:00)
== END 2016-12-10 17:45 | disposition home or self-care (01) | DRG 287 ==
LOC: ER 16:54 → 2 NORTH 18:30
PROVIDERS: ADMIT Family Medicine; ATTEND Family Medicine
PROC: 4A023N7 Measurement of Cardiac Sampling and Pressure, Left Heart, Percutaneous Approach (ICD-10-PCS; principal; 2016-12-10)
PROC: B2111ZZ Fluoroscopy of Multiple Coronary Arteries using Low Osmolar Contrast (ICD-10-PCS; 2016-12-10)
PROC: B2151ZZ Fluoroscopy of Left Heart using Low Osmolar Contrast (ICD-10-PCS; 2016-12-10)
DX: R07.9 Chest pain, unspecified (principal); Z68.41 Body mass index [BMI] 40.0-44.9, adult; F41.9 Anxiety disorder, unspecified; I10 Essential (primary) hypertension; E03.9 Hypothyroidism, unspecified; E66.01 Morbid (severe) obesity due to excess calories; F02.80 Dementia in other diseases classified elsewhere, unspecified severity, without behavioral disturbance, psychotic disturbance, mood disturbance, and anxiety; G30.9 Alzheimer's disease, unspecified; M19.90 Unspecified osteoarthritis, unspecified site; Z90.49 Acquired absence of other specified parts of digestive tract; Z79.899 Other long term (current) drug therapy; E88.81 Metabolic syndrome and other insulin resistance
CPT/HCPCS: 36415; 71020; 78452; 80048; 80053; 80061; 83735; 83880; 84443; 84484; 85027; 93005; 93017; 93306; 93458; 96374; 96375; 96376; A9500; C1769; C1892; J2250; J2785; J3010; J3490; Q9967; 99285-25

== ENCOUNTER 2018-09-15 12:15 | Inpatient (IN) | payer BC ==
[~2018-09-15] VITALS: Ht 188 cm; Wt 153.8 kg
[~2018-09-15 12:15] MED LIST: AMLO1TAB95 PO
--- NOTE | 2018-09-15 12:37 | PHYS DOC ---
Past Medical History Past Medical History: Hypertension Past Surgical History: Appendectomy Additional Past Surgical Histo: VEIN SURGERY ON LEGS Alcohol Use: None Drug Use: None Adult General Chief Complaint Chief Complaint: CHEST PAIN HPI HPI Patient is a 63 year old male who presents with chest pain. This started approximately an hour ago and lasted for about 30 minutes. Described it as a heaviness. Patient became dizzy and was near syncopal when trying to get up and walk. Onset of symptoms were what he was sitting and playing bingo. No nausea, no diaphoresis. The symptoms resolved on their own after approximately half an hour. Patient did not take any aspirin or nitroglycerin. Denies any current chest pain.[] Review of Systems Review of Systems Constitutional: Denies fever or chills [] Eyes: Denies change in visual acuity, redness, or eye pain [] HENT: Denies nasal congestion or sore throat [] Respiratory: Denies cough or shortness of breath [] Cardiovascular: No additional information not addressed in HPI [] GI: Denies abdominal pain, nausea, vomiting, bloody stools or diarrhea [] : Denies dysuria or hematuria [] Musculoskeletal: Denies back pain or joint pain [] Integument: Denies rash or skin lesions [] Neurologic: Denies headache, focal weakness or sensory changes [] Endocrine: Denies polyuria or polydipsia [] All other systems were reviewed and found to be within normal limits, except as documented in this note. Family History Family History Father with an HI in his 50s Current Medications Current Medications Current Medications Medications (Trade) Dose Ordered Sig/Lucio Start Time Stop Time Status Last Admin Dose Admin Aspirin (Children'S Aspirin) 324 mg 1X ONCE 09/15/18 12:45 09/15/18 12:46 DC 09/15/18 12:45 324 MG Allergies Allergies Allergies Coded Allergies Type Severity Reaction Last Updated Verified No Known Drug Allergies 12/07/16 No Physical Exam Physical Exam Constitutional: Well developed, well nourished, no acute distress, non-toxic appearance. [] HENT: Normocephalic, atraumatic, bilateral external ears normal, oropharynx moist, no oral exudates, nose normal. [] Eyes: PERRLA, EOMI, conjunctiva normal, no discharge. [] Neck: Normal range of motion, no tenderness, supple, no stridor. [] Cardiovascular:Heart rate regular rhythm, no murmur [] Lungs & Thorax: Bilateral breath sounds clear to auscultation [] Abdomen: Bowel sounds normal, soft, no tenderness, no masses, no pulsatile masses. [] Skin: Warm, dry, no erythema, no rash. [] Back: No tenderness, no CVA tenderness. [] Extremities: No tenderness, no cyanosis, no clubbing, ROM intact, no edema. [] Neurologic: Alert and oriented X 3, normal motor function, normal sensory function, no focal deficits noted. [] Psychologic: Affect normal, judgement normal, mood normal. [] Current Patient Data Vital Signs Vital Signs Date Time Temp Pulse Resp B/P (MAP) Pulse Ox O2 Delivery O2 Flow Rate FiO2 09/15/18 12:18 97.5 58 20 149/80 (103) 97 Room Air 97.5 Lab Values Laboratory Tests Test 09/15/18 13:05 09/15/18 13:12 White Blood Count 5.2 x10^3/uL (4.0-11.0) Red Blood Count 4.70 x10^6/uL (4.30-5.70) Hemoglobin 13.1 g/dL (13.0-17.5) Hematocrit 39.8 % (39.0-53.0) Mean Corpuscular Volume 85 fL (79-100) Mean Corpuscular Hemoglobin 28 pg (25-35) Mean Corpuscular Hemoglobin Concent 33 g/dL (31-37) Red Cell Distribution Width 15.3 % (11.5-14.5) H Platelet Count 136 x10^3/uL (140-400) L Neutrophils (%) (Auto) 68 % (31-73) Lymphocytes (%) (Auto) 16 % (24-48) L Monocytes (%) (Auto) 16 % (0-9) H Eosinophils (%) (Auto) 1 % (0-3) Basophils (%) (Auto) 1 % (0-3) Neutrophils # (Auto) 3.5 x10^3uL (1.8-7.7) Lymphocytes # (Auto) 0.8 x10^3/uL (1.0-4.8) L Monocytes # (Auto) 0.8 x10^3/uL (0.0-1.1) Eosinophils # (Auto) 0.0 x10^3/uL (0.0-0.7) Basophils # (Auto) 0.0 x10^3/uL (0.0-0.2) Sodium Level 137 mmol/L (136-145) Potassium Level 3.7 mmol/L (3.5-5.1) Chloride Level 101 mmol/L (98-107) Carbon Dioxide Level 29 mmol/L (21-32) Anion Gap 7 (6-14) Blood Urea Nitrogen 17 mg/dL (8-26) Creatinine 0.8 mg/dL (0.7-1.3) Estimated GFR (Cockcroft-Gault) 97.3 BUN/Creatinine Ratio 21 (6-20) H Glucose Level 132 mg/dL (70-99) H Calcium Level 8.7 mg/dL (8.5-10.1) Magnesium Level 2.2 mg/dL (1.8-2.4) Total Bilirubin 0.4 mg/dL (0.2-1.0) Aspartate Amino Transferase (AST) 32 U/L (15-37) Alanine Aminotransferase (ALT) 37 U/L (16-63) Alkaline Phosphatase 38 U/L (46-116) L Troponin I Quantitative < 0.017 ng/mL (0.000-0.055) NG-Wbp-D-Type Natriuretic Peptide 114 pg/mL (0-124) Total Protein 7.5 g/dL (6.4-8.2) Albumin 3.7 g/dL (3.4-5.0) Albumin/Globulin Ratio 1.0 (1.0-1.7) POC Troponin I 0.01 ng/ml (<0.08) Laboratory Tests 09/15/18 13:05 Laboratory Tests 09/15/18 13:05 EKG EKG EKG shows sinus rhythm at 54 bpm, left axis, QTC 421 ms, no ST elevation, no acute changes when compared with EKG of 12/07/2016. Interpreted by me at 1226[] Radiology/Procedures Radiology/Procedures XAM: Chest, single view. HISTORY: Chest pain. COMPARISON: None. FINDINGS: A frontal view of the chest is obtained. There is no infiltrate, pleural effusion or pneumothorax. There is a prominent cardiac silhouette, likely due to portable technique. IMPRESSION: No acute pulmonary finding.[] Course & Med Decision Making Course & Med Decision Making Pertinent Labs and Imaging studies reviewed. (See chart for details) ED course: Patient arrived, was placed in bed, and tolerated exam well. Patient was given aspirin while in the emergency department. He did not have any further episodes of chest pain. Due to concern for this being of cardiac etiology given the chest pain and near syncopal episode, consultation was made with his primary care team. Patient was admitted in improved condition. Medical decision making: There is no evidence of an ST elevation HI, no pneumonia, no pneumothorax, no PE risk factors and the discomfort is not respirophasic. No evidence of thoracic aneurysm dissection nor esophageal rupture.[] Dragon Disclaimer Dragon Disclaimer This electronic medical record was generated, in whole or in part, using a voice recognition dictation system. Departure Departure Impression: Primary Impression: Chest pain Disposition: ADMITTED INPATIENT Admitting Physician: Landon Domingo Condition: IMPROVED Referrals: LANDON DOMINGO MD (PCP) Problem Qualifiers Primary Impression: Chest pain Chest pain type: unspecified Qualified Codes: R07.9 - Chest pain, unspecified JOSE CHRIS DO Sep 15, 2018 12:37
[2018-09-15] MEDS ORDERED: ASPIRIN CHEWABLE 81 MG TABLET. PO ONE (12:45)
--- NOTE | 2018-09-15 12:47 | EKG ---
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
--- NOTE | 2018-09-15 13:10 | RAD ---
EXAM: Chest, single view. HISTORY: Chest pain. COMPARISON: None. FINDINGS: A frontal view of the chest is obtained. There is no infiltrate, pleural effusion or pneumothorax. There is a prominent cardiac silhouette, likely due to portable technique. IMPRESSION: No acute pulmonary finding. Electronically signed by: Adali García MD (09/15/2018 1:06 PM) [facility]
[2018-09-15 13:29] LABS: BASO % 1 % (0-3); EOS % 1 % (0-3); HEMATOCRIT 39.8 % (39.0-53.0); HEMOGLOBIN 13.1 g/dL (13.0-17.5); LYMPH # 0.8 x10^3/uL (1.0-4.8); LYMPH % 16 % (24-48); MEAN CORPUSCULAR HEMOGLOBIN 28 pg (25-35); MEAN CORPUSCULAR HGB CONC 33 g/dL (31-37); MEAN CORPUSCULAR VOLUME 85 fL (79-100); MONO # 0.8 x10^3/uL (0.0-1.1); MONO % 16 % (0-9); NEUT # 3.5 x10^3uL (1.8-7.7); NEUT % 68 % (31-73); PLATELET COUNT 136 x10^3/uL (140-400); RED CELL DISTRIBUTION WIDTH 15.3 % (11.5-14.5); WHITE BLOOD COUNT 5.2 x10^3/uL (4.0-11.0)
[2018-09-15 13:38] LABS: CALCIUM 8.7 mg/dL (8.5-10.1); CREATININE 0.8 mg/dL (0.7-1.3); GFR 97.3; POTASSIUM 3.7 mmol/L (3.5-5.1)
[2018-09-15 13:40] LABS: PROTHROMBIN TIME PATIENT 13.3 SEC (11.7-14.0)
[2018-09-15 13:44] LABS: ALBUMIN 3.7 g/dL (3.4-5.0); MAGNESIUM 2.2 mg/dL (1.8-2.4); TOTAL BILIRUBIN 0.4 mg/dL (0.2-1.0); TOTAL PROTEIN 7.5 g/dL (6.4-8.2)
[2018-09-15] MEDS ORDERED: ACETAMINOPHEN 325 MG TABLET. PO PRN (14:30)
[2018-09-15] MEDS ORDERED: ONDANSETRON PF 4 MG/2 ML VIAL. IV PRN (14:30)
[2018-09-15] MEDS ORDERED: NITROGLYCERIN SUBLINGUAL 0.4 MG BOTTLE OF 25. SL PRN (14:30)
[2018-09-15] MEDS ORDERED: MORPHINE SULFATE 4 MG/ML VIAL. IV PRN (14:30)
[2018-09-15] MEDS ORDERED: TAMS0.4C2 PO (15:49)
[2018-09-15] MEDS ORDERED: HYDR12.58 PO (15:49)
[2018-09-15] MEDS ORDERED: CITA20TA6 PO (15:49)
[2018-09-15] MEDS ORDERED: OXYB5TAB7 PO (15:49)
[2018-09-15 17:00] VITALS: BP 117/75
[2018-09-15 19:55] VITALS: BP 132/63
[2018-09-15 23:32] VITALS: BP 146/75
[2018-09-16 03:49] VITALS: BP 138/56
[2018-09-16 05:24] LABS: CHOLESTEROL/HDL RATIO 2.7
[2018-09-16 07:50] VITALS: BP 133/65
[2018-09-16 10:14] VITALS: BP 140/86
--- NOTE | 2018-09-16 11:04 | PDOC2 ---
CARDIOLOGY CONSULT NOTE CHEIF COMPLAINT: CHEST PAIN HPI: 63 y.o male with pmhx as noted below presenting with chest pain. Pain started while he was seated. No alleviating or exacerbating factors. No new dyspnea, orthopnea, pnd or LE edema. No syncope or palpitations. Upon arrival to ER, vitals stable, EKG unremarkable and trop negative. Admitted for obs, overnight no recurrence. Feels better today. At baseline he is retired but able to shovel snow and mow the yard w/o chest pain or dyspnea. PMHX: HTN Obesity SOCHX: No alcohol, tob or illicits FAMHX: NC CURRENT MEDS: Current Medications Medications (Trade) Dose Ordered Sig/Lucio Start Time Stop Time Status Last Admin Dose Admin Acetaminophen (Tylenol) 650 mg PRN Q4HRS PRN 09/15/18 14:30 09/16/18 14:29 Aspirin (Children'S Aspirin) 324 mg 1X ONCE 09/15/18 12:45 09/15/18 12:46 DC 09/15/18 12:45 324 MG Morphine Sulfate (Morphine Sulfate) 4 mg PRN Q2HR PRN 09/15/18 14:30 09/16/18 14:29 Nitroglycerin (Nitrostat) 0.4 mg PRN Q5MIN PRN 09/15/18 14:30 09/16/18 14:29 Ondansetron HCl (Zofran) 4 mg PRN Q8HRS PRN 09/15/18 14:30 09/16/18 14:29 ALLERGIES: Allergies Coded Allergies Type Severity Reaction Last Updated Verified No Known Drug Allergies 12/07/16 No ROS: Negative for 04/23 systems reviewed unless noted above in HPI PHYSICAL EXAM: Vital Signs: Vital Signs Date Time Temp Pulse Resp B/P (MAP) Pulse Ox O2 Delivery O2 Flow Rate FiO2 09/16/18 10:14 98.3 55 20 140/86 (104) 95 Room Air 98.3 I & O Intake and Output 09/16/18 06:59 Intake Total 410 ml Balance 410 ml Intake Oral 410 ml # Voids 1 Physical Exam: GEN.: No apparent distress. Alert and oriented. HEENT: Head is normocephalic, atraumatic NECK: Supple. LUNGS: Clear to auscultation. HEART: RRR, S1, S2 present. Peripheral pulses intact ABDOMEN: Soft, nontender. Positive bowel sounds. EXTREMITIES: Without any cyanosis. NEUROLOGIC: Normal speech, normal tone PSYCHIATRIC: Normal affect, normal mood. SKIN: No ulcerations DIAGNOSTIC TESTING: Cath in 12/2016 - no significant disease. MPI with false positive result in 2017 Trop negative x 3. EKG today unremarkable No events on tele ASSESSMENT: 1. Atypical chest pain - low risk with recent negative coronary angiography 2. HTN 3. Obesity PLAN: 1. Continue medical therapy and aggressive risk factor modification. 2. No further CV testing needed. If there is recurrence of pain, could consider outpt ischemic eval. Thank you for this consultation. ROCHELLE STINSON MD Sep 16, 2018 11:04
--- NOTE | 2018-09-16 11:44 | HP ---
ADMIT DATE: 09/15/2018 CHIEF COMPLAINT AND HISTORY OF PRESENT ILLNESS: This 63-year-old white male is well known to me in followup in the office. The patient was at the [facility] with his mother when he developed chest pain, predominantly left upper chest, sharp in nature, staying for at least 30 minutes. He got up and walked around, with no relief, sat back down to and got up and walked around again and felt like he was going to fall with it. He was brought to the Emergency Room, where he was admitted for the chest pain. The patient denies any associated symptoms with the chest plain including shortness of breath, diaphoresis, lightheadedness, nausea or vomiting. He denies any palpitations, etc. with it. He has no symptoms on the morning of my evaluation and is waiting Cardiology consult. PAST MEDICAL HISTORY: Remarkable for hypertension and obesity. MEDICATIONS: Brought with the patient, listed on the computer and have been addressed. ALLERGIES: He has no known drug allergies. SOCIAL HISTORY: He is a nonsmoker, nondrinker. He does not use drugs. , lives at home with his . He is retired from the [employer]. FAMILY HISTORY: Positive for atherosclerotic heart disease in his father. REVIEW OF SYSTEMS: That as mentioned above. PHYSICAL EXAMINATION: GENERAL: He is a well-developed, well-nourished white male, in no acute distress. VITAL SIGNS: Stable. He is afebrile. HEAD, EYES, EARS, NOSE AND THROAT: Unremarkable. NECK: Supple, without any lymphadenopathy or thyromegaly. CHEST: Clear to auscultation and percussion. HEART: Regular rate and rhythm, without S3, S4 or murmur. ABDOMEN: Soft, nontender, without hepatosplenomegaly or masses. EXTREMITIES: Without cyanosis, clubbing or edema. NEUROLOGIC: He is intact. DIAGNOSTIC DATA: He did have a heart catheterization a year and a half or so ago with no significant disease. A false positive MPI. Troponin is negative x 3, as are EKGs. IMPRESSION: 1. Chest pain, rule out cardiac etiology. 2. Hypertension. PLAN: Await Cardiology consultation with plans to follow. He is currently n.p.o. and I have ordered a stress MPI, pending Cardiology evaluation. LANDON DOMINGO MD DR: Fan JOB#: [id number] / [id number]
--- NOTE | 2018-09-16 13:40 | NUR ---
Pt discharged to home. No new orders at d/c. All discharge education and paperwork given and reviewed with pt. Pt states understanding. IV d/c'd prior to leaving. Staff assist via wheelchair with staff, family to drive. Pt denies further needs.
--- NOTE | 2018-09-16 15:38 | DS ---
DATE OF DISCHARGE: 09/16/2018 PRIMARY DIAGNOSIS: Noncardiac chest pain. ADDITIONAL DIAGNOSIS: Hypertension. CHIEF COMPLAINT AND HISTORY OF PRESENT ILLNESS: This is a 63-year-old white male who was admitted through the Emergency Room on the day of admission with sharp chest pain, left upper chest, lasting 30 minutes in duration without associated symptoms. SUMMARY OF STAY: EKG, troponins were negative. Cardiology saw him; felt he could be dismissed as they felt this was atypical and noncardiac, particularly given the fact that he had a negative cath back in 2017 after a false positive MPI. He was asymptomatic from the time of this admission and it was felt he could be dismissed with outpatient followup and this was accomplished. DISPOSITION: The patient is discharged to home. Regular diet. Activity as tolerated. Office next week. DISCHARGE MEDICATIONS: Will be that of resumption of his regular home medications. LANDON DOMINGO MD DR: SISI/shahana JOB#: [id number] / [id number]
== END 2018-09-16 13:41 | disposition home or self-care (01) | DRG 313 ==
LOC: ER 12:15 → 2 NORTH 13:52
PROVIDERS: ADMIT Family Medicine; ATTEND Family Medicine
PROC: 5A09357 Assistance with Respiratory Ventilation, Less than 24 Consecutive Hours, Continuous Positive Airway Pressure (ICD-10-PCS; principal; 2018-09-15)
DX: R07.89 Other chest pain (principal); Z68.41 Body mass index [BMI] 40.0-44.9, adult; E66.9 Obesity, unspecified; I10 Essential (primary) hypertension; Z82.49 Family history of ischemic heart disease and other diseases of the circulatory system; Z90.49 Acquired absence of other specified parts of digestive tract; Z79.899 Other long term (current) drug therapy
CPT/HCPCS: 36415; 71045; 80053; 80061; 83735; 83880; 84484; 85025; 85610; 93005; 99285-25

== ENCOUNTER 2021-09-05 16:59 | Emergency (ER) | payer MEDICARE, BC ==
[~2021-09-05] VITALS: Ht 190.5 cm; Wt 159.0 kg
[~2021-09-05 16:59] MED LIST changes: +CITA20TA6 PO; +HYDR12.58 PO; +OXYB5TAB10 PO; +TAMS0.4C2 PO
--- NOTE | 2021-09-05 18:23 | PHYS DOC ---
Past Medical History Past Medical History: Hypertension Additional Past Medical Histor: INCONTINENCE Past Surgical History: Appendectomy Additional Past Surgical Histo: VEIN SURGERY ON LEGS, Smoking Status: Never Smoker Alcohol Use: None Drug Use: None General Adult EDM: Chief Complaint: BLOOD IN URINE HPI: HPI: Patient is a 66 year old male who presents with gross hematuria, which began today. He reports that he has chronic urinary urgency and frequency. He has felt like he cannot completely empty his bladder for many years. He wears an adult diaper, he has done so for many years. He reports dysuria for the past few days. He denies abdominal pain, flank pain. Denies dizziness, fall, weakness, numbness or tingling, denies nausea, vomiting, diarrhea, constipation. He denies bleeding from other sources or sites. He is not taking any anticoagulant medication. He has previously seen urology services at [facility]. Reports that a few years ago he had a foreskin procedure, sounds like he had an adult circumcision with revision. He reports that he is never been seen by a urologist for anything other than this, and he reports that he is told his prostate is "normal." However he never actually had his prostate examined, to his knowledge. It sound like he has had normal PSA exams. To his knowledge he has never been told that he has had BPH. He has never undergone cystoscopy. He has previously experienced similar symptoms with UTIs. Review of Systems: Review of Systems: Constitutional: Denies fever or chills. [] Respiratory: Denies cough or shortness of breath. [] Cardiovascular: Denies chest pain or edema. [] GI: Denies abdominal pain, nausea, vomiting, or diarrhea : Gross hematuria, dysuria, urinary urgency and frequency. Chronic dribbling and urinary incontinence, for many years, unchanged. Musculoskeletal: Denies back pain or joint pain. [] Integument: Denies rash. [] Neurologic: Denies headache, focal weakness or sensory changes. [] Psychiatric: Denies depression or anxiety. [] Heart Score: C/O Chest Pain: No Risk Factors: Risk Factors: DM, Current or recent (<one month) smoker, HTN, HLP, family history of CAD, obesity. Risk Scores: Score 0 - 3: 2.5% MACE over next 6 weeks - Discharge Home Score 4 - 6: 20.3% MACE over next 6 weeks - Admit for Clinical Observation Score 7 - 10: 72.7% MACE over next 6 weeks - Early Invasive Strategies Allergies: Allergies: Allergies Coded Allergies Type Severity Reaction Last Updated Verified No Known Drug Allergies 12/07/16 No Physical Exam: PE: Constitutional: Well developed, well nourished, no acute distress, non-toxic appearance. [] HENT: Normocephalic, atraumatic Eyes: Conjunctiva normal, no discharge. [] Neck: Trachea midline Cardiovascular:Heart rate regular rhythm, +2 dorsalis pedis and +2 radial pulses bilaterally Lungs & Thorax: Bilateral breath sounds clear to auscultation, no rales, rhonchi or wheezes Abdomen: Abdomen is obese, soft, nondistended, nontender to palpation. No CVA tenderness. No flank abdominal ecchymoses. No palpable pulsatile mass. No audible bruit. Normal bowel sounds : Urethral meatus is patent, no blood at the meatus, no glans swelling, no tenderness of the scrotum or testes. There is a relatively large volume of pubic adipose tissue. Skin: Warm, dry, no erythema, no rash. [] Back: No tenderness, no CVA tenderness. No midline tenderness or step-offs. Full range of motion Extremities: No tenderness, no cyanosis, no clubbing, ROM intact, bilateral, symmetric nonpitting edema. No calf tenderness. Neurologic: Alert and oriented X 3, normal motor function, normal sensory function, no focal deficits noted. [] Psychologic: Affect normal, judgement normal, mood normal. [] Current Patient Data: Vital Signs: Vital Signs Date Time Temp Pulse Resp B/P (MAP) Pulse Ox O2 Delivery O2 Flow Rate FiO2 09/05/21 17:22 99.1 78 12 174/72 (106) 98 Room Air 99.1 EKG: EKG: [] Radiology/Procedures: Radiology/Procedures: IMAGING REPORT Signed PATIENT: SHANTANU ABEBE ACCOUNT: [id number] : 1955 LOCATION: ER AGE: 66 SEX: M EXAM STATUS: REG ER ORD. PHYSICIAN: ELO ZHOU DO REASON: hematuria, urinary retention PROCEDURE: CT ABDOMEN PELVIS WO CONTRAST Exam: CT of abdomen and pelvis without contrast INDICATION: Hematuria, urinary retention TECHNIQUE: Sequential axial images through the abdomen and pelvis obtained wit hout IV contrast. Sagittal and coronal reformatted images were reconstructed from the axial data and reviewed. Exposure: One or more of the following in the visualized dose reduction techniques were utilized for this examination: 1. Automated exposure control 2. Adjustment of the MA and/or KV according to patient size 3. Use of iterative of reconstructive technique Comparisons: None FINDINGS: Heart size is normal. No pericardial effusion. Visualized lung bases are clear. No pleural effusion. Evaluation of solid organs limited secondary noncontrast technique. Liver, spleen, pancreas and adrenals are unremarkable. Gallstone the gallbladder. No perinephric inflammation or hydronephrosis. No renal or ureteral calculi are identified. Bladder is partially distended and appears thin-walled. Mild perivesicular fat stranding is noted. Prostate is not enlarged. There is a left inguinal hernia which contains a short segment of sigmoid colon. Appendix is nonidentified. No free intra-abdominal air or fluid. No obstruction. Abdominal aorta has a normal course and caliber. No enlarged intra-abdominal lymph nodes are identified. No suspicious osseous lesions or acute fractures. IMPRESSION: 1. Mild perivesicular fat stranding. Correlate with urinalysis for cystitis. 2. Large left inguinal hernia which is predominantly fat-containing also has a partial loop of sigmoid colon. Electronically signed by: Anthony Gardiner MD (09/05/2021 7:58 PM) [facility] DICTATED and SIGNED BY: ANTHONY GARDINER MD DATE: 09/05/21 [id number] 0 Course & Med Decision Making: Course & Med Decision Making Pertinent Labs and Imaging studies reviewed. (See chart for details) The patient is given a dose of IV Rocephin. He was able to void on his own after in and out catheterization. I have discussed the findings, differential diagnosis and plan of care with him. I strongly encouraged him to follow-up with his urologist at [facility]. Emergency department work-up here is most consistent with acute cystitis with hematuria. I explained that he may require outpatient cystoscopy by his urologist. No current indication for further invasive exams, imaging or admission based on current clinical presentation. He understands that his urine culture is pending, and if there is any indication to change antibiotics based on this, he should be notified. I recommend that he contact his PCP on Tuesday as well. Strict return precautions are given. Tye Disclaimer: Tye Disclaimer: This electronic medical record was generated, in whole or in part, using a voice recognition dictation system. Departure Departure Impression: Primary Impression: Acute cystitis Qualified Codes: N30.01 - Acute cystitis with hematuria Disposition: HOME / SELF CARE / HOMELESS Condition: STABLE Referrals: LANDON DOMINGO MD (PCP) Patient Instructions: Hematuria, Adult, Interstitial Cystitis, Urinary Tract Infection Additional Instructions: Take the full course of antibiotics as directed until gone. Return to the ER for his abdominal pain, severe back pain, temperature 100.4 or higher, uncontrolled vomiting or any other concerns. Make sure you stay hydrated. Please contact your urologist at [facility] for follow-up of this infection, and you may require outpatient cystoscopy to look more directly at your bladder to ensure there is not another underlying issue contributing to your infections. Contact your primary care physician on Tuesday for follow-up as well. Your urine culture is pending, and if there is any need to change antibiotics based on these results, you should be notified within about 48 hours. Scripts Cefdinir (CEFDINIR) 300 Mg Capsule 1 CAP PO BID for 7 Days, #14 CAP Prov: ELO ZHOU DO 09/05/21 ELO ZHOU DO Sep 05, 2021 18:23
[2021-09-05 18:50] LABS: BILIRUBIN,URINE NEGATIVE (NEG); CLARITY,URINE HAZY; COLOR,URINE YELLOW; NITRITE,URINE NEGATIVE (NEG); PH,URINE 6.5 (<5.0-8.0); PROTEIN,URINE 100 mg/dL (NEG-TRACE); UROBILINOGEN,URINE 0.2 mg/dL (0.2 mg/dL)
[2021-09-05 18:52] LABS: BACTERIA,URINE 0 /HPF (0-FEW); RBC,URINE TNTC /HPF (0-2); WBC,URINE >40 /HPF (0-4)
[2021-09-05 19:07] LABS: BASO # 0.1 x10^3/uL (0.0-0.2); BASO % 0 % (0-3); EOS # 0.2 x10^3/uL (0.0-0.7); EOS % 1 % (0-3); HEMATOCRIT 38.3 % (39.0-53.0); HEMOGLOBIN 12.5 g/dL (13.0-17.5); LYMPH # 1.9 x10^3/uL (1.0-4.8); LYMPH % 14 % (24-48); MEAN CORPUSCULAR HEMOGLOBIN 27 pg (25-35); MEAN CORPUSCULAR HGB CONC 33 g/dL (31-37); MEAN CORPUSCULAR VOLUME 84 fL (79-100); MONO # 0.9 x10^3/uL (0.0-1.1); MONO % 6 % (0-9); NEUT # 10.6 x10^3/uL (1.8-7.7); NEUT % 78 % (31-73); PLATELET COUNT 212 x10^3/uL (140-400); RED BLOOD COUNT 4.57 x10^6/uL (4.30-5.70); RED CELL DISTRIBUTION WIDTH 15.3 % (11.5-14.5); WHITE BLOOD COUNT 13.6 x10^3/uL (4.0-11.0)
[2021-09-05] MEDS ORDERED: cefTRIAXone IV Push 1 GM VIAL. IVP ONE (19:15)
[2021-09-05 19:19] LABS: CREATININE 0.8 mg/dL (0.7-1.3); GFR 96.4; POTASSIUM 3.7 mmol/L (3.5-5.1)
--- NOTE | 2021-09-05 20:01 | RAD ---
Exam: CT of abdomen and pelvis without contrast INDICATION: Hematuria, urinary retention TECHNIQUE: Sequential axial images through the abdomen and pelvis obtained without IV contrast. Sagit luis miguel and coronal reformatted images were reconstructed from the axial data and reviewed. Exposure: One or more of the following in the visualized dose reduction techniques were utilized for this examination: 1. Automated exposure control 2. Adjustment of the MA and/or KV according to patient size 3. Use of iterative of reconstructive technique Comparisons: None FINDINGS: Heart size is normal. No pericardial effusion. Visualized lung bases are clear. No pleural effusion. Evaluation of solid organs limited secondary noncontrast technique. Liver, spleen, pancreas and adrenals are unremarkable. Gallstone the gallbladder. No perinephric inflammation or hydronephrosis. No renal or ureteral calculi are identified. Bladder is partially distended and appears thin-walled. Mild perivesicular fat stranding is noted. Pr ostate is not enlarged. There is a left inguinal hernia which contains a short segment of sigmoid colon. Appendix is nonident ified. No free intra-abdominal air or fluid. No obstruction. Abdominal aorta has a normal course and caliber. No enlarged intra-abdominal lymph nodes are identified. No suspicious osseous lesions or acute fractures. IMPRESSION: 1. Mild perivesicular fat stranding. Correlate with urinalysis for cystitis. 2. Large left inguinal hernia which is predominantly fat-containing also has a partial loop of sigmo id colon. Electronically signed by: Anthony Gtz MD (09/05/2021 7:58 PM) [facility]
[2021-09-05] MEDS ORDERED: CEFD300C PO (20:33)
[2021-09-05 20:34] VITALS: BP 139/73
== END 2021-09-05 20:48 | disposition home or self-care (01) ==
LOC: ER 16:59
DX: N30.01 Acute cystitis with hematuria (principal); I10 Essential (primary) hypertension; Z90.89 Acquired absence of other organs
CPT/HCPCS: 36415; 74176; 80048; 81001; 85025; 87086; 96374; 99285; J0696